=== PATIENT | female | born 1950 | race Two or more races ===

== ENCOUNTER 2024-12-25 06:29 | Day surgery (SDC) | payer OTHER ==
[~2024-12-25] VITALS: Ht 154.9 cm; Wt 66.7 kg
[~2024-12-25 06:29] MED LIST: FURO1TAB32 PO; MULT-1018 PO; POTA-36 PO; PROBTAB12 OR; ROSU20TA14 PO
[2024-12-25] MEDS ORDERED: IODIXANOL 320MG/ML 100ML BTL IV ONE ×2 (07:22→07:56)
[2024-12-25] MEDS ORDERED: MIDAZOLAM HCL 2MG/2ML 2ml VIAL (1mg/ml) IV ONE (07:45)
[2024-12-25] MEDS ORDERED: LIDOCAINE VISCOUS 2% 15ML UD PO ONE (07:45)
[2024-12-25] MEDS ORDERED: fentaNYL CITRATE 100 MCG/2 ML VL IV ONE (07:45)
[2024-12-25] MEDS ORDERED: ANGIOMAX 250 MG VIAL IV ONE (07:55)
[2024-12-25] MEDS ORDERED: fentaNYL CITRATE 100 MCG/2 ML VL ONE (07:55)
[2024-12-25] MEDS ORDERED: MIDAZOLAM HCL 2MG/2ML 2ml VIAL (1mg/ml) ONE (07:55)
[2024-12-25] MEDS ORDERED: HEPARIN SODIUM (PORCINE) 5000 UNITS/ML 1ML VIAL ONE (07:55)
[2024-12-25] MEDS ORDERED: VERAPAMIL 2.5MG/ML INJ 2ML VIAL IV ONE (07:55)
[2024-12-25] MEDS ORDERED: LIDOCAINE 2%HCL (LOCAL ANESTH.) INJ 20ML MDV ONE (07:56)
[2024-12-25] MEDS ORDERED: NITROGLYCERIN 50MG/250ML 250 ML IV ONE (07:56)
[2024-12-25] MEDS ORDERED: SODIUM CHL 0.9% 0 ML ONE (07:56)
--- NOTE | 2024-12-25 08:27 | DVHOP2 ---
Operative Report Operative Report CARDIAC TRANSFER IRON OPERATOR PROCEDURE REPORT [place], [place] Date of Service: 12/25/24 Completions Manager: Blu Elaine MD PROCEDURES PERFORMED: trans esophageal echocardiogram, conscious sedation <15 mins, doppler assesment complete BRITTON, PREOPERATIVE DIAGNOSES: mitral regurg/ severe CHF POSTOP DIAGNOSIS: severe mitral regurg DESCRIPTION OF PROCEDURE: The patient or appropriate family signed informed consent understanding the risks, benefits and alternatives of the procedure, they wished to proceed. The patient was brought to the cardiac organic lab worker in n.p.o. state. the patient was given 15 ml of oral viscous lidocaine. the patient was placed in a left lateral decubitus position with bite block in mouth. NExt conscious sedation was administered per organic lab worker protocol with _1_ mg of versed and _50__ mcg of fentanyl. Next a BRITTON probe was advanced to the mid esophagus with ease and multiple planar images obtained. At the completion of the procedure , probe was removed and there were no immediate complications. FINDINGS: Left Ventricle: LV dilated, global dysfunction but worse in apex , LVEF estimated at 20-25% Right Ventricle: RV enlarged, mild dysfunction Left atrium: enlarged significant Right atrium: mild enlarged Left atrial appendage: no thrombus noted, Aortic valve: trileaflet valve, no severe or AI Mitral Valve: severe eccentric posteriorly directed mitral regurg, central jet at 60 degrees as well, anterior leaflet appears structurally normal, posterior leaflet with restricted motion but no sig prolapse, mean gradient across is 2 mmhg, no significant MS Tricuspid Valve: mild tricuspid regurgitaiton, no TS Pulmonic Valve: strucutrally normal, no severe PI or PS Interatrial septum: negative color flow for R to L shunt, negative bubble study Ascending aorta: no severe plaquing PLAN: [facility] today consider mitraclip treatment for HF if pt meets criteria at tertiary care center BLU ELAINE MD Dec 25, 2024 08:27
[2024-12-25 09:01] VITALS: BP 107/70; PULSE 99; RESP 20; O2SAT 94
--- NOTE | 2024-12-25 09:11 | DVHOP2 ---
Operative Report Operative Report CARDIAC OTOLARYNGOLOGY SURGEON PROCEDURE REPORT [place], [place] Date of Service: 12/25/24 [place] Coiling Machine Setter: Blu Elaine MD PROCEDURES PERFORMED: Coronary angiogram, left heart catheterization, conscious sedation administration and supervision, less than 15 minutes; fluoroscopy use and interpretation. PREOPERATIVE DIAGNOSES: severe CHF POSTOP DIAGNOSIS: NICM DESCRIPTION OF PROCEDURE: The patient or appropriate family signed informed consent understanding the risks, benefits and alternatives of the procedure, they wished to proceed. The patient was brought to the cardiac physical laboratory assistant in n.p.o. state. The patient was prepped in a sterile fashion. Sedation was used per cardiac cath protocol. I administered 2 mL of 2% lidocaine to the right wrist. With an antegrade front wall puncture. I cannulated the right radial artery and placed a 6-Welsh Glidesheath slender. Next, an intra-arterial spasmolytic was administered. Next, a - 6French [place] catheter and and were used for coronary angiogram and LVEDP measurement and pressure pullback. At the completion of procedure, all guides and wires were removed, and there were no immediate complications. 3500 U of IV heparin given. FINDINGS: RCA: Moderate non dominant vessel off the right sinus of Valsalva, there is no severe flow limiting stenosis. LEFT MAIN: large size left main, it bifurcates into LAD and circumflex. CIRCUMFLEX: super dominant branch, caliber vessel coming off the left main with no flow limiting stenosis. LAD: LAD is a moderate caliber vessel coming of the left main. 40% mid LAD st enosis. distal LAD is patent. LVEDP of 21 mmhg CONCLUSIONS: 1. predominantly NICM 2. mild cad 2. elevated LVEDP PLAN: Aggressive risk factor modification and medical management for the patient. eval for mitraclip in future BLU ELAINE MD Dec 25, 2024 09:11
[2024-12-25 09:17] VITALS: BP 104/67; PULSE 89; RESP 22; O2SAT 97
[2024-12-25 09:32] VITALS: BP 101/68; PULSE 89; RESP 20; O2SAT 98
[2024-12-25 09:47] VITALS: BP 103/74; PULSE 95; RESP 20; O2SAT 97
[2024-12-25 10:17] VITALS: BP 100/63; PULSE 90; RESP 20; O2SAT 97
[2024-12-25 10:47] VITALS: BP 101/69; PULSE 88; RESP 20; O2SAT 97
== END 2024-12-25 11:00 | disposition home or self-care (01) ==
LOC: CATH 06:29
PROVIDERS: ATTEND Internal Medicine
DX: I25.10 Atherosclerotic heart disease of native coronary artery without angina pectoris (principal); I42.8 Other cardiomyopathies; I08.1 Rheumatic disorders of both mitral and tricuspid valves; I50.9 Heart failure, unspecified; Z79.899 Other long term (current) drug therapy; Z87.891 Personal history of nicotine dependence
CPT/HCPCS: 93312; 93325; 93458; C1769; C1894; J1644; J2250; J3010; Q9967; 99152; 99153